=== PATIENT | female | born 1950 | race Asian ===

== ENCOUNTER 2017-05-16 12:59 | Outpatient (CLI) | payer MEDICARE, OTHER | END 2017-05-16 13:17 | LOC: D.MAMMO 12:59 | DX: Z12.31 Encounter for screening mammogram for malignant neoplasm of breast (principal) ==

== ENCOUNTER 2018-02-14 23:15 | Emergency (ER) | payer MEDICARE, OTHER ==
[2018-02-15 00:11] LABS: BASOPHILS 0.3 % (0-2); EOSINOPHILS 1.3 % (0-7); HEMATOCRIT 39.5 % (36.0-48.0); HEMOGLOBIN 13.4 g/dL (12-16); IMMATURE GRANULOCYTES 0.4 % (0-5); LYMPHOCYTES 9.9 % (15-50); MCH 30.6 pg (26.0-34.0); MCHC 33.9 g/dL (31.0-37.0); MCV 90.2 fL (80.0-100.0); MEAN PLATELET VOLUME 9.4 fL (7.4-10.4); MONOCYTES 9.7 % (2-11); NEUTROPHILS 78.4 % (40-80); PLATELET COUNT 112 10x3/uL (130-400); RBC 4.38 10x6/uL (4.00-5.40); RDW 13.1 % (11.5-14.5); WBC 11.5 10x3/uL (4.8-10.8)
[2018-02-15 00:35] LABS: ALBUMIN 3.7 g/dL (3.4-5.0); ALKALINE PHOSPHATASE 79 U/L (46-116); ALT (SGPT) 29 U/L (10-68); BILIRUBIN - TOTAL 0.92 mg/dL (0.2-1.3); CALC OSMOLALITY 283 mosm/kg (275-300); CALCIUM 9.2 mg/dL (8.5-10.1); CARBON DIOXIDE 28.6 mmol/L (21.0-32.0); CHLORIDE - SERUM 101 mmol/L (98-107); CREATININE - SERUM 1.1 mg/dL (0.6-1.3); GLUCOSE 136 mg/dL (74-106); POTASSIUM - SERUM 3.1 mmol/L (3.5-5.1); PROTEIN - SERUM 7.2 g/dL (6.4-8.2); SODIUM 139 mmol/L (136-145); UREA NITROGEN 23 mg/dL (7-18); eGFR NON AFRICAN AMERICAN 52 mL/min (90-120)
[2018-02-15 00:56] LABS: CREATINE KINASE 270 UL (21-215); TROPONIN-I < 0.017 ng/mL (0.000-0.060)
[2018-02-15 00:57] LABS: CKMB 1.6 U/L (0.0-3.6)
== END 2018-02-15 01:17 | disposition home or self-care (01) ==
LOC: D.ER 23:15
PROVIDERS: Emergency Medicine
DX: R51 Headache (principal); R41.82 Altered mental status, unspecified; J18.9 Pneumonia, unspecified organism; R68.83 Chills (without fever)

== ENCOUNTER → 2018-06-18 21:17 | Outpatient (CLI) | payer MEDICARE, OTHER | END | disposition home or self-care (01) | LOC: D.MAMMO 13:00 | DX: Z12.31 Encounter for screening mammogram for malignant neoplasm of breast (principal) ==

== ENCOUNTER 2019-07-22 09:00 | Outpatient (CLI) | payer MEDICARE, OTHER ==
[2019-08-10] MEDS ORDERED: TENORMIN100 MG PO (10:10)
[2019-08-10] MEDS ORDERED: COZAAR100 MG PO (10:10)
[2019-08-10] MEDS ORDERED: K-DUR20 MEQ PO (10:11)
[2019-08-10] MEDS ORDERED: FUROSEMIDE20 MG PO (10:11)
[2019-08-10] MEDS ORDERED: CRESTOR5 MG PO (10:12)
[2019-08-10] MEDS ORDERED: OMEPRAZOLE40 MG PO (10:12)
[2019-08-10] MEDS ORDERED: ZYLOPRIM100 MG PO (10:12)
[2019-08-10] MEDS ORDERED: AMBIEN10 MG PO (10:13)
[2019-08-11 08:53] VITALS: BMI 28.3
== END 2019-07-22 10:00 | disposition home or self-care (01) ==
LOC: D.MAMMO 09:00
PROVIDERS: ATTEND Family Medicine
DX: Z12.31 Encounter for screening mammogram for malignant neoplasm of breast (principal)

== ENCOUNTER → 2019-08-09 07:22 | Outpatient (CLI) | payer MEDICARE, OTHER ==
[~2019-08-09 07:22] MED LIST: AMBIEN10 MG PO; COZAAR100 MG PO; CRESTOR5 MG PO; FUROSEMIDE20 MG PO; K-DUR20 MEQ PO; OMEPRAZOLE40 MG PO; TENORMIN100 MG PO; ULTRAM50 MG PO; ZYLOPRIM100 MG PO
[2019-08-11 08:53] VITALS: BMI 28.3
== END | disposition home or self-care (01) ==
LOC: D.US 07:22
PROVIDERS: ATTEND Internal Medicine Gastroenterology
DX: R10.9 Unspecified abdominal pain (principal); R11.2 Nausea with vomiting, unspecified

== ENCOUNTER 2019-08-11 07:45 | Day surgery (SDC) | payer MEDICARE, OTHER ==
[2019-08-10 10:57] LABS: HEMATOCRIT 41.4 % (36.0-48.0); HEMOGLOBIN 14.5 g/dL (12-16); MCH 30.8 pg (26.0-34.0); MCV 87.9 fL (80.0-100.0); RBC 4.71 10x6/uL (4.00-5.40); RDW 13.4 % (11.5-14.5); WBC 6.3 10x3/uL (4.8-10.8)
[2019-08-10 11:14] LABS: CALCIUM 8.9 mg/dL (8.5-10.1); CARBON DIOXIDE 26.7 mmol/L (21.0-32.0); CREATININE - SERUM 0.9 mg/dL (0.6-1.3); POTASSIUM - SERUM 3.7 mmol/L (3.5-5.1)
[~2019-08-11] VITALS: Ht 152.4 cm; Wt 65.8 kg
[~2019-08-11 07:45] MED LIST changes: -ULTRAM50 MG PO
[2019-08-11 08:53] VITALS: BP 153/72; Ht 152.4 cm; Wt 65.8 kg
[2019-08-11] MEDS ORDERED: ULTRAM50 MG PO (10:49)
--- NOTE | 2019-08-11 11:07 | NUR ---
CARE TO KWAN SEGOVIA RN @[id number]
--- NOTE | 2019-08-11 12:30 | NUR ---
1225 IV REMOVED PRESSURE HELD AND DRESSING APPLIED
--- NOTE | 2019-08-11 16:08 | OP ---
PATIENT NAME: EPHRAIM LAN MEDICAL RECORD: [id number] :46 LOCATION:D.OPS ADMISSION DATE: SURGEON: CHET LIRIANO MD DATE OF OPERATION: 08/11/2019 SURGEON: Chet Liriano MD PREOPERATIVE DIAGNOSIS: Left upper extremity lipoma. POSTOPERATIVE DIAGNOSIS: Left upper extremity lipoma. PROCEDURE PERFORMED: Excisional biopsy of left upper extremity lipoma, 4 x 4 x 3 cm. ANESTHESIA: General. COMPLICATIONS: None. SPECIMENS: Left upper extremity lipoma 4 x 4 x 3 cm. Case was clean. COMPLICATIONS: None. OPERATIVE COURSE: After consent was obtained, the patient was taken to the operating room and placed in supine position on the operating table. The left upper extremity was prepped and draped in typical sterile fashion. Time was taken to confirm the correct patient and procedure. Adequate general anesthesia was obtained. A 10 cc of local anesthetic were injected above the skin in the area of the palpable subcutaneous lipoma. Skin incision was made with a 15-blade scalpel. Dissection then continued to the subcutaneous tissue with electrocautery and sharp scissor dissection. The lipoma was palpated. It was circumferentially dissected using Metzenbaum scissors, it was passed off the field and sent for permanent pathology. Specimen was 4 x 4 x 3 cm. The wound was copiously irrigated. The wound was then closed in multiple layers. Deep fascia was closed with 3-0 Vicryl sutures, superficial fascia was closed with 3-0 Vicryl suture. The skin was closed with a 4-0 Monocryl in a subcuticular fashion as well as Mastisol and Steri-Strips. At the end of the case, all needle and instrument counts were correct. No complications occurred. The patient was extubated and transferred to PACU in stable condition. TRANSINT:[id number] Voice Confirmation ID: [id number] DOCUMENT ID: [id number] CHET LIRIANO MD at 1608 CC: [id number] DICTATION DATE: 08/11/19 1053 WHISKEY REGAUGER: 08/11/19 1423 [facility] [place] 08/11/19 [place] [address]
== END 2019-08-11 12:45 | disposition home or self-care (01) ==
LOC: D.OPS 07:45 → D.PAN 10:00 → D.OPS 10:30
PROVIDERS: Anesthesiology; ATTEND Surgery
DX: D17.22 Benign lipomatous neoplasm of skin and subcutaneous tissue of left arm (principal)

== ENCOUNTER → 2019-09-16 09:13 | Outpatient (CLI) | payer MEDICARE, OTHER ==
[2019-08-11 08:53] VITALS: BMI 28.3
[~2019-09-16 09:13] MED LIST changes: +ULTRAM50 MG PO
== END | disposition home or self-care (01) ==
LOC: D.MRI 09:13
PROVIDERS: ATTEND Internal Medicine Gastroenterology
DX: R93.2 Abnormal findings on diagnostic imaging of liver and biliary tract (principal)

== ENCOUNTER → 2019-12-28 12:32 | Outpatient (CLI) | payer MEDICARE, OTHER ==
[2019-08-11 08:53] VITALS: BMI 28.3
--- NOTE | 2019-12-30 12:54 | EC ---
PATIENT:EPHRAIM LAN DATE OF SERVICE: 12/28/19 SEX: F MEDICAL RECORD: [id number] DATE OF : 46 [facility] AGE OF PATIENT: 69 ADMISSION DATE: 12/28/19 REFERRING PHYSICIAN: INTERPRETING PHYSICIAN: ANNALISA JOHNSON MD ECHOCARDIOGRAM REPORT ECHO CHARGES 4 ECHO COMPLETE Date: 12/28/19 CLINICAL DIAGNOSIS: THN HX OF PALPITATIONS ECHOCARDIOGRAPHIC MEASUREMENTS (adult normal given) AC root (d.<3.7cm) 3.1 cm LV Septum d (<1.2 cm> 1.5 cm Valve Excursion 1.5 cm LV Septum (systole) 1.7 cm Left Atria (s.<4.0cm> 3.5 cm LVPW d(<1.2cm) 1.7 cm RV (d.<2.3cm) 2.7 cm LVPW (sytole) 2.0 cm LV diastole(<5.6CM) 2.6 cm MV E-F(>70mm/sec) cm LV systole 1.7 cm LVOT Diameter 1.7 cm MV exc.(>10mm) 1.6 cm Est.ejection fraction (50-75%) % DOPPLER: LVIT cm/sec A 102.0cm/sec E 62.0 cm/sec LA cm/sec RVSP 33 mmHg LVOT 82 cm/sec AOP1/2T m/s Asc. 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 Johnson TAPE# PACS Pericardial Effusion N DATE OF SERVICE: 12/28/2019 ECHOCARDIOGRAM FINDINGS: 1. Left ventricular chamber size is within normal limits. Left ventricular systolic function is normal. Overall ejection fraction estimated at 60% to 65%. 2. Left atrium, right atrium, and right ventricle chamber sizes are within normal limits. 3. Valvular structures have normal structure and motion. ECHOCARDIOGRAM REPORT [id number] EPHRAIM LAN 4. Doppler interrogation reveals mild mitral regurgitation, mild tricuspid regurgitation, no other valvular insufficiency or stenosis. 5. No evidence of pericardial effusion or left ventricular thrombus. TRANSINT:[id number] Voice Confirmation ID: [id number] DOCUMENT ID: [id number] ANNALISA JOHNSON MD at 1254 CC: [id number] DICTATION DATE: 12/28/19 1638 MANAGER IN TRAINING: 12/28/19 1853 DEP CLI 12/28/19 [place] [id number] [place] [id number]
== END | disposition home or self-care (01) ==
LOC: D.HCCECHO 12:32
PROVIDERS: ATTEND Internal Medicine Interventional Cardiology
DX: I10 Essential (primary) hypertension (principal)